=== PATIENT | female | born 1975 | race African-American/Black ===

== ENCOUNTER 2017-01-27 21:02 | Emergency (ER) | payer MEDICAID ==
[~2017-01-27] VITALS: Ht 165.1 cm; Wt 64.9 kg
[~2017-01-27 21:02] MED LIST: PREN-125
[2017-01-27 21:32] VITALS: BP 131/91
== END 2017-01-27 23:00 | disposition home or self-care (01) ==
LOC: ER 21:02
DX: J02.9 Acute pharyngitis, unspecified (principal); I10 Essential (primary) hypertension; F17.210 Nicotine dependence, cigarettes, uncomplicated; F12.10 Cannabis abuse, uncomplicated

== ENCOUNTER 2017-09-04 21:57 | Emergency (ER) | payer MEDICAID ==
[~2017-09-04] VITALS: Ht 165.1 cm; Wt 72.6 kg
[2017-09-04 22:49] LABS: Basophils # (auto) 0 uL; Basophils % (auto) 0.4 % (0.0-2.0); Eosinophils # (auto) 0 uL; Eosinophils % (auto) 0.2 % (0.0-7.0); Hematocrit 34.2 % (36.0-46.0); Hemoglobin 11.3 g/dL (12.2-16.2); Lymphocytes # (auto) 0.7 uL; Lymphocytes % (auto) 8.3 % (10.0-50.0); Mean Corpuscular Hemoglobin 27.8 pg (28.0-32.0); Mean Corpuscular Hgb Conc. 33.2 g/dL (32.0-36.0); Mean Corpuscular Volume 83.6 fL (80.0-100.0); Mean Platelet Volume 8.4 fL (6.9-10.8); Monocytes % (auto) 11.9 % (0.0-12.0); Neutrophils # (auto) 6.8 uL; Neutrophils % (auto) 79.2 % (37.0-80.0); Platelet Count (auto) 172 10^3/uL (140-450); Red Cell Distribution Width 14.3 % (11.8-14.3); White Blood Cell 8.6 10^3/uL (4.4-10.8)
[2017-09-04 23:11] LABS: Albumin 3.3 g/dL (3.4-5.0); BUN/Creatinine Ratio 13.6; Bilirubin, Total 0.8 mg/dL (0.2-1.0); Calcium 8.1 mg/dL (8.5-10.1); Potassium 3.5 mmol/L (3.5-5.1); Total Protein 7.1 g/dL (6.4-8.2)
[2017-09-05] MEDS ORDERED: HYDROmorphone HCL 2 MG/ML VL IM ONE (07:15)
[2017-09-05] MEDS ORDERED: ONDANSETRON HCL 4 MG/2 ML VIAL IM ONE (07:15)
[2017-09-05 07:30] VITALS: BP 104/65
== END 2017-09-05 07:56 | disposition home or self-care (01) ==
LOC: ER 21:57
DX: K29.00 Acute gastritis without bleeding (principal); N39.0 Urinary tract infection, site not specified; I10 Essential (primary) hypertension; F17.210 Nicotine dependence, cigarettes, uncomplicated; F12.10 Cannabis abuse, uncomplicated
CPT/HCPCS: 36415; 74176; 80053; 82150; 83690; 84702; 85025; 96372; 99285; J1170; J2405

== ENCOUNTER 2017-12-05 01:36 | Emergency (ER) | payer MEDICAID ==
[~2017-12-05] VITALS: Ht 165.1 cm; Wt 90.7 kg
[2017-12-05 03:31] VITALS: BP 127/88
[2017-12-05] MEDS ORDERED: MORPHINE SULFATE 4 MG/ML SYR/VIAL IM ONE (04:15)
[2017-12-05] MEDS ORDERED: ONDANSETRON HCL 4 MG/2 ML VIAL IM ONE (04:15)
== END 2017-12-05 05:23 | disposition home or self-care (01) ==
LOC: ER 01:36 → EDBD 01:36 → ER 05:07
DX: S00.83XA Contusion of other part of head, initial encounter (principal); I10 Essential (primary) hypertension; F17.210 Nicotine dependence, cigarettes, uncomplicated; F12.10 Cannabis abuse, uncomplicated; Y08.89XA Assault by other specified means, initial encounter; Y93.89 Activity, other specified; Y99.8 Other external cause status; Y92.89 Other specified places as the place of occurrence of the external cause
CPT/HCPCS: 70450; 70486; 72125; 96372; 99284; J2270; J2405

== ENCOUNTER 2018-09-04 22:37 | Emergency (ER) | payer MEDICAID ==
[~2018-09-04] VITALS: Ht 172.7 cm; Wt 54.4 kg
[2018-09-04 22:40] VITALS: BP 132/74
== END 2018-09-05 00:20 | disposition left against medical advice (07) ==
LOC: EDBD 22:37 → ER 22:37
DX: R51 Headache (principal); Z53.21 Procedure and treatment not carried out due to patient leaving prior to being seen by health care provider

== ENCOUNTER 2018-09-05 15:43 | Emergency (ER) | payer MEDICAID ==
[~2018-09-05] VITALS: Ht 165.1 cm; Wt 72.6 kg
[2018-09-05 15:59] VITALS: BP 142/90
[2018-09-05] MEDS ORDERED: ASPirin 81 mg TAB PO ONE (16:15)
[2018-09-05] MEDS: KETOROLAC TROMETH 60MG/2ML VIAL IM ONE (16:19)
[2018-09-05] MEDS: cefTRIAXone SOD 1,000 MG VL IM ONE (16:19)
== END 2018-09-05 16:19 | disposition home or self-care (01) ==
LOC: ER 15:54
DX: N39.0 Urinary tract infection, site not specified (principal); I10 Essential (primary) hypertension; E11.9 Type 2 diabetes mellitus without complications; F17.210 Nicotine dependence, cigarettes, uncomplicated; R51 Headache
CPT/HCPCS: 93005; 96372; 99283; J0696; J1885

== ENCOUNTER 2018-12-06 13:34 | Emergency (ER) | payer MEDICAID ==
[~2018-12-06] VITALS: Ht 165.1 cm; Wt 72.6 kg
[2018-12-06] MEDS ORDERED: ACETAMINOPHEN 325 MG TAB PO ONE ×2 (13:56→14:15)
[2018-12-06 14:03] VITALS: BP 132/89
[2018-12-06] MEDS ORDERED: cefTRIAXone SOD 1,000 MG VL IM ONE (19:15)
[2018-12-06] MEDS ORDERED: methylPREDNISolone SOD SUCC 125 MG/2 ML VL IM ONE (19:15)
== END 2018-12-06 19:51 | disposition home or self-care (01) ==
LOC: ER 13:44
DX: N39.0 Urinary tract infection, site not specified (principal); K59.00 Constipation, unspecified; M54.5 Low back pain; E11.9 Type 2 diabetes mellitus without complications; I10 Essential (primary) hypertension; F17.210 Nicotine dependence, cigarettes, uncomplicated
CPT/HCPCS: 71046; 74018; 96372; 99283; J0696; J2930

== ENCOUNTER 2019-06-05 19:33 | Emergency (ER) | payer MEDICAID ==
[~2019-06-05] VITALS: Ht 165.1 cm; Wt 72.6 kg
[2019-06-05 20:15] VITALS: BP 144/94
== END 2019-06-06 00:38 | disposition left against medical advice (07) ==
LOC: ER 19:33
DX: R07.9 Chest pain, unspecified (principal); Z53.21 Procedure and treatment not carried out due to patient leaving prior to being seen by health care provider
CPT/HCPCS: 71046; 93005

== ENCOUNTER 2020-12-31 15:48 | Emergency (ER) | payer MEDICAID ==
[~2020-12-31] VITALS: Ht 165.1 cm; Wt 74.4 kg
[2020-12-31 16:18] VITALS: BP 127/91
[2020-12-31] MEDS ORDERED: KETOROLAC TROMETH 30 MG/ML 1ML VIAL IV ONE (16:45)
[2020-12-31 17:34] LABS: Basophils # (auto) 0 10 ^3/uL (0-0.2); Eosinophils # (auto) 0.1 10 ^3/uL (0-0.8); Lymphocytes # (auto) 1.3 10 ^3/uL (0.4-5.4); Mean Corpuscular Hemoglobin 26.9 pg (28.0-32.0); Monocytes # (auto) 0.5 10 ^3/uL (0-1.3); Neutrophils # (auto) 2.1 10 ^3/uL (1.6-8.6); White Blood Cell 3.9 10^3/uL (4.4-10.8)
[2020-12-31 17:36] LABS: Basophils % (auto) 0.7 % (0.0-2.0); Eosinophils % (auto) 2.2 % (0.0-7.0); Hematocrit 35.4 % (36.0-46.0); Hemoglobin 11.8 g/dL (12.2-16.2); Lymphocytes % (auto) 32.5 % (10.0-50.0); Mean Corpuscular Hgb Conc. 33.2 g/dL (32.0-36.0); Mean Corpuscular Volume 81.1 fL (80.0-100.0); Neutrophils % (auto) 52.6 % (37.0-80.0); Nucleated Red Blood Cells % 0.2 %; Platelet Count (auto) 256 10^3/uL (140-450); Red Blood Cells 4.36 10^6/uL (4.0-5.20); Red Cell Distribution Width 15.8 % (11.8-14.3)
[2020-12-31 17:50] LABS: Albumin 3.4 g/dL (3.4-5.0); BUN/Creatinine Ratio 13.7; Calcium 8.3 mg/dL (8.5-10.1)
[2020-12-31 17:53] LABS: Bilirubin, Total 0.3 mg/dL (0.2-1.0); Total Protein 6.9 g/dL (6.4-8.2)
[2020-12-31 19:20] LABS: Urine Bacteria NONE SEEN /hpf (None Seen); Urine Blood 3+ /uL (Negative); Urine WBC 2647 /hpf (0 - 5)
[2020-12-31] MEDS ORDERED: cefTRIAXone SOD 1,000 MG VL IM ONE ×2 (19:45)
== END 2020-12-31 19:57 | disposition home or self-care (01) ==
LOC: ER 15:48
DX: M79.18 Myalgia, other site (principal); N39.0 Urinary tract infection, site not specified; R31.9 Hematuria, unspecified; E11.9 Type 2 diabetes mellitus without complications; I10 Essential (primary) hypertension; F17.210 Nicotine dependence, cigarettes, uncomplicated; Z79.899 Other long term (current) drug therapy
CPT/HCPCS: 36415; 74176; 80053; 81001; 85025; 96372; 96374; 99284; J0696; J1885

== ENCOUNTER 2021-01-24 12:39 | Emergency (ER) | payer MEDICAID ==
[~2021-01-24] VITALS: Ht 162.6 cm; Wt 72.6 kg
[2021-01-24 12:45] VITALS: BP 159/101
== END 2021-01-24 14:54 | disposition home or self-care (01) ==
LOC: ER 12:39
DX: S16.1XXA Strain of muscle, fascia and tendon at neck level, initial encounter (principal); S39.012A Strain of muscle, fascia and tendon of lower back, initial encounter; E11.9 Type 2 diabetes mellitus without complications; I10 Essential (primary) hypertension; F17.210 Nicotine dependence, cigarettes, uncomplicated; V43.62XA Car passenger injured in collision with other type car in traffic accident, initial encounter; Y93.89 Activity, other specified; Y92.488 Other paved roadways as the place of occurrence of the external cause; Y99.8 Other external cause status
CPT/HCPCS: 72040; 72100

== ENCOUNTER 2022-07-21 11:39 | Inpatient (IN) | payer MEDICAID ==
[~2022-07-21] VITALS: Ht 165.1 cm; Wt 102.5 kg
[2022-07-21] MEDS ORDERED: ONDANSETRON ODT 4 MG TAB PO ONE (12:15)
[2022-07-21] MEDS ORDERED: cefTRIAXone SOD 1,000 MG VL IM ONE (12:15)
[2022-07-21] MEDS ORDERED: KETOROLAC TROMETH 60MG/2ML VIAL IM ONE (12:15)
[2022-07-21] MEDS ORDERED: metroNIDAZOLE 500 MG TAB PO ONE (12:15)
[2022-07-21] MEDS ORDERED: AZITHROMYCIN 250 MG TAB PO ONE (12:15)
[2022-07-21 12:41] LABS: Basophils # (auto) 0 10 ^3/uL (0-0.2); Eosinophils # (auto) 0 10 ^3/uL (0-0.8); Hemoglobin 11.2 g/dL (12.2-16.2); Lymphocytes # (auto) 1.1 10 ^3/uL (0.4-5.4); Mean Corpuscular Hgb Conc. 32.1 g/dL (32.0-36.0); Monocytes # (auto) 0.6 10 ^3/uL (0-1.3); Red Cell Distribution Width 17.7 % (11.8-14.3); White Blood Cell 6.3 10^3/uL (4.4-10.8)
[2022-07-21 12:43] LABS: Basophils % (auto) 0.6 % (0.0-2.0); Eosinophils % (auto) 0.7 % (0.0-7.0); Lymphocytes % (auto) 17.2 % (10.0-50.0); Mean Corpuscular Hemoglobin 24.8 pg (28.0-32.0); Mean Corpuscular Volume 77.3 fL (80.0-100.0); Monocytes % (auto) 9.3 % (0.0-12.0); Neutrophils # (auto) 4.5 10 ^3/uL (1.6-8.6); Neutrophils % (auto) 72.2 % (37.0-80.0); Nucleated Red Blood Cells % 0.1 %; Red Blood Cells 4.52 10^6/uL (4.0-5.20)
[2022-07-21 12:56] LABS: Albumin 3.3 g/dL (3.4-5.0); Calcium 8.5 mg/dL (8.5-10.1); Potassium 3.6 mmol/L (3.5-5.1)
[2022-07-21 13:00] LABS: BUN/Creatinine Ratio 12.8; Bilirubin, Total 0.3 mg/dL (0.2-1.0); Total Protein 6.9 g/dL (6.4-8.2)
[2022-07-21] MEDS ORDERED: IBUP800T27 PO (13:12)
[2022-07-21] MEDS ORDERED: LIDOCAINE 1% (LOCAL ANESTH.) PF 5ml SDV ONE (15:44)
[2022-07-21] MEDS ORDERED: LIDOCAINE HCL (LOCAL ANESTH.) 0.5 % 50ML MDV IJ ONE (16:00)
[2022-07-21 16:21] LABS: Urine Bacteria FEW /hpf (None Seen); Urine Blood Negative /uL (Negative); Urine Specific Gravity 1.013 (1.001-1.035); Urine WBC 17 /hpf (0 - 5)
[2022-07-21] MEDS ORDERED: metroNIDAZOLE 500MG/100ML 100 ML IV ONE (21:30)
[2022-07-21] MEDS ORDERED: ACETAMINOPHEN 325 MG TAB PO PRN (23:15)
[2022-07-21] MEDS ORDERED: TEMAZEPAM 15 MG CAP PO PRN (23:15)
[2022-07-21] MEDS ORDERED: ONDANSETRON HCL 4 MG/2 ML VIAL IV PRN (23:15)
[2022-07-22 05:00] VITALS: BP 130/81
[2022-07-22 07:12] LABS: Basophils # (auto) 0 10 ^3/uL (0-0.2); Eosinophils # (auto) 0.1 10 ^3/uL (0-0.8); Lymphocytes # (auto) 0.9 10 ^3/uL (0.4-5.4); Monocytes # (auto) 0.6 10 ^3/uL (0-1.3)
[2022-07-22 07:14] LABS: Basophils % (auto) 0.8 % (0.0-2.0); Eosinophils % (auto) 1.3 % (0.0-7.0); Hematocrit 34.8 % (36.0-46.0); Hemoglobin 11.4 g/dL (12.2-16.2); Mean Corpuscular Hemoglobin 25.1 pg (28.0-32.0); Mean Corpuscular Hgb Conc. 32.8 g/dL (32.0-36.0); Mean Corpuscular Volume 76.4 fL (80.0-100.0); Monocytes % (auto) 15.3 % (0.0-12.0); Neutrophils # (auto) 2.3 10 ^3/uL (1.6-8.6); Neutrophils % (auto) 58.6 % (37.0-80.0); Nucleated Red Blood Cells % 0.1 %; Red Blood Cells 4.55 10^6/uL (4.0-5.20); Red Cell Distribution Width 17.7 % (11.8-14.3); White Blood Cell 3.9 10^3/uL (4.4-10.8)
[2022-07-22 07:42] LABS: Potassium 3.3 mmol/L (3.5-5.1)
[2022-07-22 07:59] LABS: Albumin 3.3 g/dL (3.4-5.0); BUN/Creatinine Ratio 10.7; Bilirubin, Total 0.5 mg/dL (0.2-1.0); Calcium 8.7 mg/dL (8.5-10.1); Total Protein 6.4 g/dL (6.4-8.2)
[2022-07-22 09:00] VITALS: BP 142/99
[2022-07-22] MEDS ORDERED: cefTRIAXone 1GM/50ML D5W 50 ML IV SCH (09:00)
[2022-07-22] MEDS: HYDROcodone-ACET 5/325MG TAB PO PRN ×2 (09:00→18:25)
[2022-07-22] MEDS ORDERED: metroNIDAZOLE 500MG/100ML 100 ML IV SCH (10:00)
[2022-07-22] MEDS: PANTOPRAZOLE 40 MG TAB PO SCH (10:28)
[2022-07-22 12:49] VITALS: BP 133/88
[2022-07-22] MEDS: metroNIDAZOLE 500MG/100ML 100 ML IV SCH (18:01)
[2022-07-22] MEDS: cefTRIAXone 1GM/50ML D5W 50 ML IV SCH (21:25)
[2022-07-22 22:00] VITALS: BP 100/61
[2022-07-23] MEDS: metroNIDAZOLE 500MG/100ML 100 ML IV SCH ×3 (02:10→18:00)
[2022-07-23 05:00] VITALS: BP 118/79
[2022-07-23] MEDS: HYDROcodone-ACET 5/325MG TAB PO PRN ×3 (05:39→16:19)
[2022-07-23 05:54] LABS: Basophils # (auto) 0 10 ^3/uL (0-0.2); Basophils % (auto) 0.8 % (0.0-2.0); Eosinophils # (auto) 0.1 10 ^3/uL (0-0.8); Eosinophils % (auto) 2.7 % (0.0-7.0); Hematocrit 32.1 % (36.0-46.0); Hemoglobin 10.7 g/dL (12.2-16.2); Lymphocytes # (auto) 1.2 10 ^3/uL (0.4-5.4); Lymphocytes % (auto) 33.8 % (10.0-50.0); Mean Corpuscular Hemoglobin 25.8 pg (28.0-32.0); Mean Corpuscular Hgb Conc. 33.2 g/dL (32.0-36.0); Mean Corpuscular Volume 77.9 fL (80.0-100.0); Monocytes # (auto) 0.6 10 ^3/uL (0-1.3); Monocytes % (auto) 15.9 % (0.0-12.0); Neutrophils # (auto) 1.6 10 ^3/uL (1.6-8.6); Neutrophils % (auto) 46.8 % (37.0-80.0); Nucleated Red Blood Cells % 0.1 %; Red Blood Cells 4.12 10^6/uL (4.0-5.20); Red Cell Distribution Width 17.7 % (11.8-14.3); White Blood Cell 3.5 10^3/uL (4.4-10.8)
[2022-07-23 08:29] VITALS: BP 124/77
[2022-07-23] MEDS: cefTRIAXone 1GM/50ML D5W 50 ML IV SCH (10:22)
[2022-07-23] MEDS: PANTOPRAZOLE 40 MG TAB PO SCH (10:22)
[2022-07-23 12:24] VITALS: BP 145/93
[2022-07-23] MEDS ORDERED: METR500T PO (14:12)
[2022-07-23] MEDS ORDERED: DOXY-286 PO (14:12)
[2022-07-23] MEDS ORDERED: IBUP800T27 PO (14:12)
[2022-07-23] MEDS ORDERED: CEL100T PO (14:12)
== END 2022-07-23 18:10 | disposition home or self-care (01) | DRG 531 ==
LOC: ER 11:39 → EDBD 11:39 → EDUNIT# 11:39 → TELE-EAST 23:10 → EAST 23:41
PROVIDERS: ADMIT Nurse Practitioner; ATTEND Hospitalist
DX: N73.9 Female pelvic inflammatory disease, unspecified (principal); D25.9 Leiomyoma of uterus, unspecified; J45.909 Unspecified asthma, uncomplicated; N70.91 Salpingitis, unspecified; N39.0 Urinary tract infection, site not specified; I10 Essential (primary) hypertension; Z20.822 Contact with and (suspected) exposure to COVID-19; F17.210 Nicotine dependence, cigarettes, uncomplicated; E11.9 Type 2 diabetes mellitus without complications; F15.90 Other stimulant use, unspecified, uncomplicated; Z68.37 Body mass index [BMI] 37.0-37.9, adult
CPT/HCPCS: 36415; 74176; 76856; 80053; 81001; 81025; 83605; 85025; 96365; 96372; G0378; J0696; J1885; J3490; Q0162

== ENCOUNTER 2022-09-20 13:47 | Emergency (ER) | payer MEDICAID ==
[~2022-09-20] VITALS: Ht 165.1 cm; Wt 73.6 kg
[~2022-09-20 13:47] MED LIST changes: +CEL100T PO; +DOXY-286 PO; +IBUP800T27 PO; +METR500T PO
[2022-09-20 14:35] VITALS: BP 149/92
[2022-09-20 16:32] LABS: Basophils # (auto) 0 10 ^3/uL (0-0.2); Eosinophils # (auto) 0.1 10 ^3/uL (0-0.8); Hemoglobin 11.8 g/dL (12.2-16.2); Lymphocytes # (auto) 1.4 10 ^3/uL (0.4-5.4); Neutrophils # (auto) 2.4 10 ^3/uL (1.6-8.6); Nucleated Red Blood Cells % 0.2 %; White Blood Cell 4.4 10^3/uL (4.4-10.8)
[2022-09-20 16:35] LABS: Basophils % (auto) 0.5 % (0.0-2.0); Eosinophils % (auto) 1.8 % (0.0-7.0); Lymphocytes % (auto) 32.5 % (10.0-50.0); Mean Corpuscular Hemoglobin 26.8 pg (28.0-32.0); Mean Corpuscular Hgb Conc. 32.8 g/dL (32.0-36.0); Mean Corpuscular Volume 81.7 fL (80.0-100.0); Monocytes # (auto) 0.4 10 ^3/uL (0-1.3); Monocytes % (auto) 9.9 % (0.0-12.0); Neutrophils % (auto) 55.3 % (37.0-80.0); Red Blood Cells 4.41 10^6/uL (4.0-5.20); Red Cell Distribution Width 16.8 % (11.8-14.3)
[2022-09-20 16:55] LABS: Potassium 3.7 mmol/L (3.5-5.1)
[2022-09-20 17:04] LABS: Albumin 3.5 g/dL (3.4-5.0); BUN/Creatinine Ratio 15.6; Bilirubin, Total 0.3 mg/dL (0.2-1.0); Calcium 9.4 mg/dL (8.5-10.1); Total Protein 6.4 g/dL (6.4-8.2)
[2022-09-20 19:32] LABS: Urine Bacteria NONE SEEN /hpf (None Seen); Urine Blood 3+ /uL (Negative); Urine WBC 923 /hpf (0 - 5)
[2022-09-20 19:48] LABS: Urine Specific Gravity 1.015 (1.001-1.035)
[2022-09-20] MEDS ORDERED: DICYCLOMINE HCL (10MG/ML) 2 ML AMPULE IM ONE (20:45)
== END 2022-09-20 20:47 | disposition home or self-care (01) ==
LOC: EDBD 13:47 → ER 13:47
DX: R10.32 Left lower quadrant pain (principal); R10.12 Left upper quadrant pain; I10 Essential (primary) hypertension; E11.9 Type 2 diabetes mellitus without complications; J45.909 Unspecified asthma, uncomplicated; F17.210 Nicotine dependence, cigarettes, uncomplicated; Z90.710 Acquired absence of both cervix and uterus; Z79.1 Long term (current) use of non-steroidal anti-inflammatories (NSAID); Z79.2 Long term (current) use of antibiotics; Z79.899 Other long term (current) drug therapy
CPT/HCPCS: 36415; 74176; 80053; 81001; 84702; 85025

== ENCOUNTER 2022-12-04 13:25 | Inpatient (IN) | payer MEDICAID ==
[~2022-12-04] VITALS: Ht 165.1 cm; Wt 71.1 kg
[2022-12-04] MEDS ORDERED: SODIUM CHLORIDE 0.9% 1,000 ML IV ONE ×2 (13:30)
[2022-12-04] MEDS ORDERED: MORPHINE SULFATE 4 MG/ML SYR/VIAL IV ONE (13:30)
[2022-12-04] MEDS ORDERED: ONDANSETRON HCL 4 MG/2 ML VIAL IV ONE (13:30)
[2022-12-04 14:02] LABS: Basophils # (auto) 0 10 ^3/uL (0-0.2); Basophils % (auto) 0.4 % (0.0-2.0); Eosinophils # (auto) 0 10 ^3/uL (0-0.8); Eosinophils % (auto) 0.5 % (0.0-7.0); Hematocrit 35.6 % (36.0-46.0); Hemoglobin 12.1 g/dL (12.2-16.2); Lymphocytes % (auto) 30.6 % (10.0-50.0); Mean Corpuscular Hemoglobin 27.3 pg (28.0-32.0); Mean Corpuscular Hgb Conc. 34.1 g/dL (32.0-36.0); Mean Corpuscular Volume 80.2 fL (80.0-100.0); Monocytes # (auto) 0.7 10 ^3/uL (0-1.3); Monocytes % (auto) 11.2 % (0.0-12.0); Neutrophils # (auto) 3.7 10 ^3/uL (1.6-8.6); Neutrophils % (auto) 57.3 % (37.0-80.0); Red Blood Cells 4.44 10^6/uL (4.0-5.20); Red Cell Distribution Width 15.2 % (11.8-14.3); White Blood Cell 6.5 10^3/uL (4.4-10.8)
[2022-12-04 14:29] LABS: Albumin 3.3 g/dL (3.4-5.0); Calcium 8.7 mg/dL (8.5-10.1)
[2022-12-04 14:32] LABS: BUN/Creatinine Ratio 9.8; Bilirubin, Total 0.2 mg/dL (0.2-1.0); Total Protein 6.9 g/dL (6.4-8.2)
[2022-12-04 14:42] LABS: Potassium 2.8 mmol/L (3.5-5.1)
[2022-12-04] MEDS ORDERED: POTASSIUM EFFERVESENT TAB 25 MEQ PO ONE (15:00)
[2022-12-04] MEDS ORDERED: AMLO-489 PO (18:08)
[2022-12-04] MEDS ORDERED: ACETAMINOPHEN 325 MG TAB PO PRN (18:15)
[2022-12-04] MEDS ORDERED: NITROGLYCERIN 0.4 MG SL TAB SL PRN (18:15)
[2022-12-04] MEDS ORDERED: DOCUSATE SOD 100 MG CAP PO PRN (18:15)
[2022-12-04] MEDS ORDERED: ONDANSETRON HCL 4 MG/2 ML VIAL IV PRN (18:15)
[2022-12-04] MEDS ORDERED: MORPHINE SULFATE INJ 2 MG/ml SYRG IV PRN (18:15)
[2022-12-04 21:33] LABS: Magnesium 2.1 mg/dL (1.6-2.6); Potassium 3.6 mmol/L (3.5-5.1)
[2022-12-05] MEDS: MORPHINE SULFATE INJ 2 MG/ml SYRG IV PRN ×4 (01:48→19:59)
[2022-12-05] MEDS: PANTOPRAZOLE 40 MG/10 ML VIAL INJ IV SCH ×3 (01:56→21:28)
[2022-12-05] MEDS: SODIUM CHLORIDE 0.9% 1,000 ML IV SCH ×2 (02:19→10:55)
[2022-12-05] MEDS: metroNIDAZOLE 500MG/100ML 100 ML IV SCH ×4 (02:20→21:28)
[2022-12-05 02:28] VITALS: BP 147/92
[2022-12-05] MEDS: HYDROcodone-ACET 5/325MG TAB PO PRN ×3 (03:35→17:29)
[2022-12-05 05:00] VITALS: BP 136/69
[2022-12-05 06:15] LABS: Basophils # (auto) 0 10 ^3/uL (0-0.2); Basophils % (auto) 0.2 % (0.0-2.0); Eosinophils # (auto) 0 10 ^3/uL (0-0.8); Eosinophils % (auto) 0.2 % (0.0-7.0); Hematocrit 29.6 % (36.0-46.0); Hemoglobin 10.3 g/dL (12.2-16.2); Lymphocytes # (auto) 1.1 10 ^3/uL (0.4-5.4); Lymphocytes % (auto) 12.9 % (10.0-50.0); Mean Corpuscular Hemoglobin 27.8 pg (28.0-32.0); Mean Corpuscular Hgb Conc. 34.9 g/dL (32.0-36.0); Mean Corpuscular Volume 79.7 fL (80.0-100.0); Monocytes # (auto) 1.1 10 ^3/uL (0-1.3); Monocytes % (auto) 13.4 % (0.0-12.0); Neutrophils % (auto) 73.3 % (37.0-80.0); Nucleated Red Blood Cells % 0.1 %; Red Blood Cells 3.72 10^6/uL (4.0-5.20); White Blood Cell 8.2 10^3/uL (4.4-10.8)
[2022-12-05 06:33] LABS: Potassium 3.7 mmol/L (3.5-5.1)
[2022-12-05 06:41] LABS: Albumin 2.8 g/dL (3.4-5.0); BUN/Creatinine Ratio 7.8; Bilirubin, Total 0.9 mg/dL (0.2-1.0); Total Protein 5.9 g/dL (6.4-8.2)
[2022-12-05 09:00] VITALS: BP 126/80
[2022-12-05] MEDS ORDERED: GASTROGRAFIN 120 ML SOL ONE (12:44)
[2022-12-05 13:00] VITALS: BP 127/88
[2022-12-05 17:00] VITALS: BP 141/95
[2022-12-05 22:00] VITALS: BP 135/88
[2022-12-06] MEDS: SODIUM CHLORIDE 0.9% 1,000 ML IV SCH (01:55)
[2022-12-06] MEDS: HYDROcodone-ACET 5/325MG TAB PO PRN ×2 (02:38→08:25)
[2022-12-06 05:00] VITALS: BP 141/82
[2022-12-06] MEDS: metroNIDAZOLE 500MG/100ML 100 ML IV SCH ×2 (05:04→14:00)
[2022-12-06 08:11] LABS: Urine Bacteria NONE SEEN /hpf (None Seen); Urine Blood 1+ /uL (Negative); Urine Hyaline Cast FEW /lpf (0 - 2); Urine Specific Gravity 1.007 (1.001-1.035); Urine WBC 3 /hpf (0 - 5)
[2022-12-06] MEDS: PANTOPRAZOLE 40 MG/10 ML VIAL INJ IV SCH (08:24)
[2022-12-06 09:00] VITALS: BP 136/84
== END 2022-12-06 14:15 | disposition home or self-care (01) | DRG 247 ==
LOC: EDBD 13:25 → EDUNIT# 13:25 → ER 13:29 → OVERFLOW 18:02 → TELE-EAST 23:39
PROVIDERS: ADMIT Nurse Practitioner Family; ATTEND Internal Medicine
DX: K56.600 Partial intestinal obstruction, unspecified as to cause (principal); E11.9 Type 2 diabetes mellitus without complications; E87.6 Hypokalemia; F15.90 Other stimulant use, unspecified, uncomplicated; I10 Essential (primary) hypertension; F12.90 Cannabis use, unspecified, uncomplicated; F17.210 Nicotine dependence, cigarettes, uncomplicated; Z20.822 Contact with and (suspected) exposure to COVID-19; J45.909 Unspecified asthma, uncomplicated; Z82.49 Family history of ischemic heart disease and other diseases of the circulatory system; Z82.5 Family history of asthma and other chronic lower respiratory diseases; Z83.3 Family history of diabetes mellitus; Z86.32 Personal history of gestational diabetes; Z87.59 Personal history of other complications of pregnancy, childbirth and the puerperium; Z90.710 Acquired absence of both cervix and uterus; Z90.721 Acquired absence of ovaries, unilateral
CPT/HCPCS: 36415; 74176; 74250; 80053; 81001; 83735; 84132; 84484; 85025; 87426; 96361; 96374; 96375; C9113; G0378; J2405; J3490

== ENCOUNTER 2023-04-07 16:28 | Emergency (ER) | payer MEDICAID ==
[~2023-04-07] VITALS: Ht 170.2 cm; Wt 130.0 kg
[~2023-04-07 16:28] MED LIST changes: +AMLO1TAB22 PO; +IBUP-1456 PO; -IBUP800T27 PO
[2023-04-07] MEDS ORDERED: KETOROLAC TROMETH 60MG/2ML VIAL IM ONE (17:15)
[2023-04-07] MEDS ORDERED: ONDANSETRON ODT 4 MG TAB PO ONE (17:15)
[2023-04-07 17:32] LABS: Basophils # (auto) 0 10 ^3/uL (0-0.2); Basophils % (auto) 0.4 % (0.0-2.0); Eosinophils # (auto) 0 10 ^3/uL (0-0.8); Hemoglobin 11.5 g/dL (12.2-16.2); Lymphocytes # (auto) 0.8 10 ^3/uL (0.4-5.4); Red Cell Distribution Width 16.5 % (11.8-14.3)
[2023-04-07 17:33] LABS: Eosinophils % (auto) 0.7 % (0.0-7.0); Hematocrit 35.2 % (36.0-46.0); Lymphocytes % (auto) 11.9 % (10.0-50.0); Mean Corpuscular Hemoglobin 24.7 pg (28.0-32.0); Mean Corpuscular Hgb Conc. 32.7 g/dL (32.0-36.0); Mean Corpuscular Volume 75.3 fL (80.0-100.0); Monocytes # (auto) 0.6 10 ^3/uL (0-1.3); Monocytes % (auto) 9.1 % (0.0-12.0); Neutrophils # (auto) 5.4 10 ^3/uL (1.6-8.6); Neutrophils % (auto) 77.9 % (37.0-80.0); Nucleated Red Blood Cells % 0.1 %; Red Blood Cells 4.67 10^6/uL (4.0-5.20); White Blood Cell 6.9 10^3/uL (4.4-10.8)
[2023-04-07 18:01] LABS: Albumin 3.9 g/dL (3.4-5.0); Calcium 9.3 mg/dL (8.5-10.1); Magnesium 2.3 mg/dL (1.6-2.6); Potassium 3.6 mmol/L (3.5-5.1)
[2023-04-07 18:04] LABS: BUN/Creatinine Ratio 10.6 (10.0-20.0); Bilirubin, Total 0.3 mg/dL (0.2-1.0); Total Protein 7.4 g/dL (6.4-8.2)
[2023-04-07 18:31] LABS: Urine Bacteria NONE SEEN /hpf (None Seen); Urine Blood Negative /uL (Negative); Urine WBC 4 /hpf (0 - 5)
[2023-04-07] MEDS ORDERED: HYDR-4798 PO (23:15)
[2023-04-07] MEDS ORDERED: ZOFR4T PO (23:15)
[2023-04-08 00:05] VITALS: BP 147/92
== END 2023-04-07 23:16 | disposition home or self-care (01) ==
LOC: EDBD 16:28 → ER 16:28
DX: N70.11 Chronic salpingitis (principal); N70.93 Salpingitis and oophoritis, unspecified; J45.909 Unspecified asthma, uncomplicated; E11.9 Type 2 diabetes mellitus without complications; I10 Essential (primary) hypertension; F17.210 Nicotine dependence, cigarettes, uncomplicated; F12.10 Cannabis abuse, uncomplicated; F15.10 Other stimulant abuse, uncomplicated; R10.2 Pelvic and perineal pain; E66.01 Morbid (severe) obesity due to excess calories; Z90.710 Acquired absence of both cervix and uterus; Z88.1 Allergy status to other antibiotic agents; Z68.41 Body mass index [BMI] 40.0-44.9, adult
CPT/HCPCS: 36415; 74176; 76856; 80053; 81001; 83690; 83735; 83880; 84484; 84702; 85025; 96372; 99285; J1885; Q0162